=== PATIENT | male | born 1935 | race Caucasian/White ===

== ENCOUNTER 2017-08-30 15:16 | Inpatient (IN) | payer OTHER ==
[~2017-08-30] VITALS: Ht 190.5 cm; Wt 72.2 kg
[~2017-08-30 15:16] MED LIST: ADVAIR 250/501 DISK IH; AMLOD-VALSA-HC1 EACH PO; ANACIN 400-321 EACH PO; OSTEO BI-FLEX1 EAC1 PO; SYNTHROID100 MCG PO
[2017-08-30 15:57] LABS: BASOPHIL (%) 0.1 % (0-1); EOSINOPHIL (%) 0.1 % (0-5); HEMATOCRIT 35.2 % (38.0-50.0); HEMOGLOBIN 12.7 G/DL (12.5-16.6); LYMPHOCYTE (%) 3.9 % (15-42); LYMPHOCYTE COUNT 0.7 K/uL (1.0-2.8); MCH 32.1 PG (29.0-34.0); MCHC 36.1 G/DL (30.0-36.0); MONOCYTE (%) 4.7 % (3-12); MONOCYTE COUNT 0.9 K/uL (0-0.8); NEUTROPHIL (%) 90.2 % (45-76); NEUTROPHIL COUNT 16.4 K/uL (1.8-6.4); PLATELET COUNT 548 K/uL (156-360); RBC DIS.WIDTH-CV 11.6 % (11.8-14.6); RBC DIS.WIDTH-SD 37.6 % (39-53); RED BLOOD COUNT 3.96 M/uL (4.00-5.50); WHITE BLOOD COUNT 18.1 K/uL (4.1-10.2)
[2017-08-30 15:59] LABS: MCV 88.9 FL (86-99)
[2017-08-30 16:03] LABS: INTER. NORMALIZED RATIO 1.3
[2017-08-30 16:05] LABS: APPEARANCE SL.HAZY ((CLEAR)); BILIRUBIN NEGATIVE; BLOOD MODERATE; COLOR YELLOW ((YELLOW)); GLUCOSE (STRIP) NEGATIVE; KETONES 5; LEUKOCYTES NEGATIVE; NITRITE NEGATIVE; PROTEIN (STRIP) NEGATIVE; SPECIFIC GRAVITY 1.017 (1.000-1.030); UROBILINOGEN 0.2 MG/DL (0.2-1.0)
[2017-08-30 16:05] LABS: PTT 27.3 SEC (25-37)
[2017-08-30 16:06] LABS: ALBUMIN 3.2 g/dL (3.2-4.8); CHLORIDE 77 mEq/L (99-109)
[2017-08-30 16:08] LABS: GLUCOSE 110 mg/dL (70-99); TOTAL PROTEIN 5.3 g/dL (6.4-8.3)
[2017-08-30 16:10] LABS: TOTAL BILIRUBIN 1.1 mg/dL (0.0-1.0)
[2017-08-30 16:11] LABS: BACTERIA NONE SEEN /HPF; EPITHELIAL CELLS RARE /HPF; MUCUS TRACE /LPF; RED BLOOD CELLS 30-40 /HPF (0-5); UCUL ADDED? YES
[2017-08-30 16:12] LABS: ALKALINE PHOSPHATASE 94 IU/L (3-129); CREATININE 0.6 mg/dL (0.6-1.3); GFR ESTIMATE (CALCULATED) > 59 mL/min/ (58.99-99999)
[2017-08-30 16:13] LABS: UREA NITROGEN (BUN) 10 mg/dL (9-23)
[2017-08-30 16:14] LABS: AST (GOT) 37 IU/L (2-34)
[2017-08-30 16:15] LABS: ALT (GPT) 52 IU/L (3-49); LIPASE 6 U/L (1.0-51.0)
[2017-08-30 16:27] LABS: SODIUM 111 mEq/L (136-147)
[2017-08-30 17:56] LABS: THYROTROPIN (TSH) 1.7 MIU/L (0.4-5.5)
[2017-08-30] MEDS ORDERED: AMOX TR-K CLV1 EAC4 PO (17:58)
[2017-08-30] MEDS ORDERED: BREO ELLIPTA I1 EACH IH (17:59)
[2017-08-30] MEDS ORDERED: ESOMEPRAZOLE MA40 MG PO (17:59)
[2017-08-30] MEDS ORDERED: PHENERGAN-CODE120 ML PO (17:59)
[2017-08-30] MEDS ORDERED: AMLODIPINE BESYL5 MG PO (18:00)
[2017-08-30 18:05] LABS: CHLORIDE 80 mEq/L (99-109); POTASSIUM 3.5 mEq/L (3.7-5.4)
[2017-08-30 18:07] LABS: GLUCOSE 102 mg/dL (70-99)
[2017-08-30 18:11] LABS: CREATININE 0.5 mg/dL (0.6-1.3); GFR ESTIMATE (CALCULATED) > 59 mL/min/ (58.99-99999)
[2017-08-30 18:12] LABS: UREA NITROGEN (BUN) 9 mg/dL (9-23)
[2017-08-30 18:18] LABS: SODIUM 112 mEq/L (136-147)
[2017-08-30 20:37] LABS: CHLORIDE 80 mEq/L (99-109); POTASSIUM 3.6 mEq/L (3.7-5.4)
[2017-08-30 20:39] LABS: GLUCOSE 102 mg/dL (70-99)
[2017-08-30 20:43] LABS: CREATININE 0.5 mg/dL (0.6-1.3); GFR ESTIMATE (CALCULATED) > 59 mL/min/ (58.99-99999)
[2017-08-30 20:44] LABS: UREA NITROGEN (BUN) 8 mg/dL (9-23)
[2017-08-30 20:51] LABS: SODIUM 112 mEq/L (136-147)
[2017-08-30 21:15] VITALS: BP 146/67
[2017-08-30 22:13] LABS: CREATININE 0.4 MG/DL (0.6-1.3); GFR ESTIMATE (CALCULATED) > 59 mL/min/ (58.99-99999); GLUCOSE 105 mg/dL (70-99); POTASSIUM 3.5 MEQ/L (3.7-5.4); UREA NITROGEN (BUN) 9 mg/dL (9-23)
[2017-08-30 22:14] LABS: CHLORIDE 79 MEQ/L (99-109); SODIUM 114 MEQ/L (136-147)
[2017-08-31] VITALS (7 sets, daily range): BP systolic 111–132; BP diastolic 67–87
[2017-08-31 00:56] LABS: CHLORIDE 83 mEq/L (99-109); POTASSIUM 4.2 mEq/L (3.7-5.4)
[2017-08-31 00:58] LABS: GLUCOSE 97 mg/dL (70-99)
[2017-08-31 01:02] LABS: CREATININE 0.5 mg/dL (0.6-1.3); GFR ESTIMATE (CALCULATED) > 59 mL/min/ (58.99-99999)
[2017-08-31 01:03] LABS: SODIUM 113 mEq/L (136-147); UREA NITROGEN (BUN) 8 mg/dL (9-23)
[2017-08-31 03:03] LABS: CHLORIDE 82 mEq/L (99-109); POTASSIUM 3.9 mEq/L (3.7-5.4)
[2017-08-31 03:04] LABS: GLUCOSE 96 mg/dL (70-99)
[2017-08-31 03:08] LABS: CREATININE 0.5 mg/dL (0.6-1.3); GFR ESTIMATE (CALCULATED) > 59 mL/min/ (58.99-99999)
[2017-08-31 03:09] LABS: UREA NITROGEN (BUN) 8 mg/dL (9-23)
[2017-08-31 03:12] LABS: SODIUM 113 mEq/L (136-147)
[2017-08-31 05:04] LABS: CHLORIDE 84 mEq/L (99-109); POTASSIUM 3.9 mEq/L (3.7-5.4)
[2017-08-31 05:06] LABS: GLUCOSE 91 mg/dL (70-99)
[2017-08-31 05:10] LABS: CREATININE 0.5 mg/dL (0.6-1.3); GFR ESTIMATE (CALCULATED) > 59 mL/min/ (58.99-99999); SODIUM 115 mEq/L (136-147); UREA NITROGEN (BUN) 7 mg/dL (9-23)
[2017-08-31 06:52] LABS: HEMATOCRIT 31.7 % (38.0-50.0); HEMOGLOBIN 11.7 G/DL (12.5-16.6); MCH 32.6 PG (29.0-34.0); MCHC 36.9 G/DL (30.0-36.0); MCV 88.3 FL (86-99); PLATELET COUNT 474 K/uL (156-360); RBC DIS.WIDTH-CV 11.6 % (11.8-14.6); RBC DIS.WIDTH-SD 37.4 % (39-53); RED BLOOD COUNT 3.59 M/uL (4.00-5.50); WHITE BLOOD COUNT 15.5 K/uL (4.1-10.2)
[2017-08-31 07:18] LABS: ALBUMIN 2.4 G/DL (3.2-4.8); ALT (GPT) 40 IU/L (3-49); AST (GOT) 34 IU/L (2-34); CHLORIDE 84 MEQ/L (99-109); CREATININE 0.4 MG/DL (0.6-1.3); GFR ESTIMATE (CALCULATED) > 59 mL/min/ (58.99-99999); GLUCOSE 91 mg/dL (70-99); POTASSIUM 3.8 MEQ/L (3.7-5.4); UREA NITROGEN (BUN) 7 mg/dL (9-23)
[2017-08-31 07:28] LABS: SODIUM 118 MEQ/L (136-147); TOTAL BILIRUBIN 0.9 MG/DL (0.0-1.0)
[2017-08-31 07:29] LABS: ALKALINE PHOSPHATASE 74 IU/L (3-129); TOTAL PROTEIN 4.4 G/DL (6.4-8.3)
[2017-08-31 08:25] LABS: CHLORIDE 84 MEQ/L (99-109); CREATININE 0.5 MG/DL (0.6-1.3); GFR ESTIMATE (CALCULATED) > 59 mL/min/ (58.99-99999); GLUCOSE 86 mg/dL (70-99); POTASSIUM 3.8 MEQ/L (3.7-5.4); SODIUM 120 MEQ/L (136-147); UREA NITROGEN (BUN) 8 mg/dL (9-23)
[2017-08-31 11:50] LABS: CHLORIDE 84 MEQ/L (99-109); CREATININE 0.5 MG/DL (0.6-1.3); GFR ESTIMATE (CALCULATED) > 59 mL/min/ (58.99-99999); GLUCOSE 94 mg/dL (70-99); POTASSIUM 3.9 MEQ/L (3.7-5.4); SODIUM 121 MEQ/L (136-147); UREA NITROGEN (BUN) 8 mg/dL (9-23)
[2017-08-31 16:12] LABS: CHLORIDE 83 MEQ/L (99-109); CREATININE 0.5 MG/DL (0.6-1.3); GFR ESTIMATE (CALCULATED) > 59 mL/min/ (58.99-99999); POTASSIUM 3.2 MEQ/L (3.7-5.4); SODIUM 120 MEQ/L (136-147); UREA NITROGEN (BUN) 7 mg/dL (9-23)
[2017-08-31 16:13] LABS: GLUCOSE 118 mg/dL (70-99)
[2017-08-31 20:29] LABS: CHLORIDE 84 MEQ/L (99-109); CREATININE 0.4 MG/DL (0.6-1.3); GFR ESTIMATE (CALCULATED) > 59 mL/min/ (58.99-99999); GLUCOSE 99 mg/dL (70-99); SODIUM 119 MEQ/L (136-147); UREA NITROGEN (BUN) 7 mg/dL (9-23)
[2017-09-01] VITALS: BP 128/68
[2017-09-01 01:03] LABS: CHLORIDE 89 mEq/L (99-109); POTASSIUM 3.3 mEq/L (3.7-5.4); SODIUM 122 mEq/L (136-147)
[2017-09-01 01:05] LABS: GLUCOSE 96 mg/dL (70-99)
[2017-09-01 01:09] LABS: CREATININE 0.5 mg/dL (0.6-1.3); GFR ESTIMATE (CALCULATED) > 59 mL/min/ (58.99-99999)
[2017-09-01 01:10] LABS: UREA NITROGEN (BUN) 6 mg/dL (9-23)
[2017-09-01 04:19] LABS: CHLORIDE 88 mEq/L (99-109); POTASSIUM 3.1 mEq/L (3.7-5.4); SODIUM 126 mEq/L (136-147)
[2017-09-01 04:21] LABS: GLUCOSE 91 mg/dL (70-99)
[2017-09-01 04:25] LABS: CREATININE 0.6 mg/dL (0.6-1.3); GFR ESTIMATE (CALCULATED) > 59 mL/min/ (58.99-99999); UREA NITROGEN (BUN) 5 mg/dL (9-23)
[2017-09-01 04:35] LABS: BASOPHIL (%) 0.1 % (0-1); EOSINOPHIL (%) 0.3 % (0-5); HEMOGLOBIN 12.6 G/DL (12.5-16.6); IMMATURE GRANULOCYTE (%) 1.3 % (0.0-0.7); LYMPHOCYTE (%) 9.4 % (15-42); LYMPHOCYTE COUNT 1.1 K/uL (1.0-2.8); MCH 32.1 PG (29.0-34.0); MCV 89.1 FL (86-99); MONOCYTE (%) 8.2 % (3-12); NEUTROPHIL (%) 80.7 % (45-76); NEUTROPHIL COUNT 9.4 K/uL (1.8-6.4); PLATELET COUNT 533 K/uL (156-360); RBC DIS.WIDTH-CV 11.7 % (11.8-14.6); RBC DIS.WIDTH-SD 37.5 % (39-53); RED BLOOD COUNT 3.93 M/uL (4.00-5.50); WHITE BLOOD COUNT 11.6 K/uL (4.1-10.2)
[2017-09-01 04:57] VITALS: BP 126/73
[2017-09-01 08:00] VITALS: BP 121/67
[2017-09-01 10:45] LABS: CHLORIDE 85 MEQ/L (99-109); CREATININE 0.5 MG/DL (0.6-1.3); GFR ESTIMATE (CALCULATED) > 59 mL/min/ (58.99-99999); SODIUM 124 MEQ/L (136-147); UREA NITROGEN (BUN) 5 mg/dL (9-23)
[2017-09-01 10:46] LABS: GLUCOSE 162 mg/dL (70-99)
[2017-09-01 11:28] LABS: TYPE OF FLUID PLEURAL
[2017-09-01 11:47] LABS: TOTAL PROTEIN 4.6 G/DL (6.4-8.3)
[2017-09-01 11:48] LABS: LACTATE DEHYDROGENASE 202 IU/L (20-246)
[2017-09-01 11:50] LABS: APPEARANCE CLOUDY-BLOODY; BODY FLUID RBC'S 18000 /MM^3 (0-100); BODY FLUID WBC'S 2001 /MM^3 (0-500)
[2017-09-01 12:12] VITALS: BP 123/74
[2017-09-01 12:22] LABS: BODY FLUID EOSINOPHILS 0 % (0-25); MONONUCLEAR WBC'S 49 %; POLYNUCLEAR WBC'S 51 % (0-25)
[2017-09-01 12:27] LABS: BODY FLUID GLUCOSE 135 MG/DL; BODY FLUID LDH 191 IU/L; BODY FLUID PROTEIN < 3.0 G/DL
[2017-09-01 16:25] VITALS: BP 146/78
[2017-09-01 16:27] LABS: CHLORIDE 87 MEQ/L (99-109); CREATININE 0.5 MG/DL (0.6-1.3); GFR ESTIMATE (CALCULATED) > 59 mL/min/ (58.99-99999); POTASSIUM 3.2 MEQ/L (3.7-5.4); SODIUM 123 MEQ/L (136-147); UREA NITROGEN (BUN) 5 mg/dL (9-23)
[2017-09-01 16:32] LABS: GLUCOSE 95 mg/dL (70-99)
[2017-09-01 19:26] VITALS: BP 140/85
[2017-09-01 21:45] LABS: CHLORIDE 89 MEQ/L (99-109); CREATININE 0.7 MG/DL (0.6-1.3); GFR ESTIMATE (CALCULATED) > 59 mL/min/ (58.99-99999); GLUCOSE 97 mg/dL (70-99); POTASSIUM 3.7 MEQ/L (3.7-5.4); SODIUM 125 MEQ/L (136-147); UREA NITROGEN (BUN) 6 mg/dL (9-23)
[2017-09-02] VITALS (7 sets, daily range): BP systolic 118–151; BP diastolic 74–86
[2017-09-02 06:30] LABS: BASOPHIL (%) 0.1 % (0-1); EOSINOPHIL (%) 0.2 % (0-5); HEMATOCRIT 37.3 % (38.0-50.0); IMMATURE GRANULOCYTE (%) 0.8 % (0.0-0.7); LYMPHOCYTE (%) 5.4 % (15-42); LYMPHOCYTE COUNT 0.8 K/uL (1.0-2.8); MCH 31.5 PG (29.0-34.0); MCHC 34.9 G/DL (30.0-36.0); MCV 90.3 FL (86-99); NEUTROPHIL (%) 86.5 % (45-76); NEUTROPHIL COUNT 12.3 K/uL (1.8-6.4); PLATELET COUNT 495 K/uL (156-360); RBC DIS.WIDTH-CV 12.2 % (11.8-14.6); RBC DIS.WIDTH-SD 39.9 % (39-53); RED BLOOD COUNT 4.13 M/uL (4.00-5.50); WHITE BLOOD COUNT 14.2 K/uL (4.1-10.2)
[2017-09-02 07:01] LABS: CHLORIDE 93 MEQ/L (99-109); GFR ESTIMATE (CALCULATED) > 59 mL/min/ (58.99-99999); GLUCOSE 80 mg/dL (70-99); SODIUM 128 MEQ/L (136-147); UREA NITROGEN (BUN) 8 mg/dL (9-23)
[2017-09-02 07:14] LABS: POTASSIUM 4.5 MEQ/L (3.7-5.4)
[2017-09-03 04:16] VITALS: BP 143/80
[2017-09-03 09:24] VITALS: BP 157/87
[2017-09-03 10:12] LABS: CHLORIDE 96 MEQ/L (99-109); POTASSIUM 4.2 MEQ/L (3.7-5.4); UREA NITROGEN (BUN) 14 mg/dL (9-23)
[2017-09-03 10:25] LABS: CREATININE 1.9 MG/DL (0.6-1.3); GFR ESTIMATE (CALCULATED) 36 mL/min/ (58.99-99999); GLUCOSE 108 mg/dL (70-99); SODIUM 135 MEQ/L (136-147); VANCOMYCIN, TROUGH 39.8 MCG/ML (10-20)
[2017-09-03 12:16] VITALS: BP 138/82
[2017-09-03 16:32] VITALS: BP 134/84
[2017-09-03 20:44] VITALS: BP 128/77
[2017-09-04 00:07] VITALS: BP 130/77
[2017-09-04 04:47] VITALS: BP 139/72
[2017-09-04 06:17] LABS: BASOPHIL (%) 0.2 % (0-1); EOSINOPHIL (%) 1.7 % (0-5); EOSINOPHIL COUNT 0.2 K/uL (0-0.3); HEMATOCRIT 35.1 % (38.0-50.0); HEMOGLOBIN 12.1 G/DL (12.5-16.6); IMMATURE GRANULOCYTE (%) 1.1 % (0.0-0.7); LYMPHOCYTE (%) 5.8 % (15-42); LYMPHOCYTE COUNT 0.8 K/uL (1.0-2.8); MCH 32.4 PG (29.0-34.0); MCHC 34.5 G/DL (30.0-36.0); MCV 93.9 FL (86-99); MONOCYTE COUNT 0.9 K/uL (0-0.8); NEUTROPHIL (%) 84.2 % (45-76); NEUTROPHIL COUNT 11.2 K/uL (1.8-6.4); PLATELET COUNT 361 K/uL (156-360); RBC DIS.WIDTH-CV 13.3 % (11.8-14.6); RBC DIS.WIDTH-SD 45.6 % (39-53); RED BLOOD COUNT 3.74 M/uL (4.00-5.50); WHITE BLOOD COUNT 13.3 K/uL (4.1-10.2)
[2017-09-04 06:40] LABS: CHLORIDE 97 MEQ/L (99-109); CREATININE 2.3 MG/DL (0.6-1.3); GFR ESTIMATE (CALCULATED) 29 mL/min/ (58.99-99999); GLUCOSE 111 mg/dL (70-99); SODIUM 135 MEQ/L (136-147); UREA NITROGEN (BUN) 17 mg/dL (9-23)
[2017-09-04 08:25] VITALS: BP 140/72
[2017-09-04 15:19] VITALS: BP 140/74
[2017-09-04 23:25] VITALS: BP 121/72
[2017-09-05 07:12] LABS: BASOPHIL (%) 0.2 % (0-1); EOSINOPHIL (%) 1.8 % (0-5); EOSINOPHIL COUNT 0.2 K/uL (0-0.3); HEMATOCRIT 32.4 % (38.0-50.0); HEMOGLOBIN 11.2 G/DL (12.5-16.6); IMMATURE GRANULOCYTE (%) 1.1 % (0.0-0.7); LYMPHOCYTE (%) 6.7 % (15-42); LYMPHOCYTE COUNT 0.8 K/uL (1.0-2.8); MCH 32.7 PG (29.0-34.0); MCHC 34.6 G/DL (30.0-36.0); MCV 94.5 FL (86-99); MONOCYTE (%) 8.3 % (3-12); NEUTROPHIL (%) 81.9 % (45-76); NEUTROPHIL COUNT 9.8 K/uL (1.8-6.4); PLATELET COUNT 290 K/uL (156-360); RBC DIS.WIDTH-CV 13.5 % (11.8-14.6); RBC DIS.WIDTH-SD 46.4 % (39-53); RED BLOOD COUNT 3.43 M/uL (4.00-5.50); WHITE BLOOD COUNT 11.9 K/uL (4.1-10.2)
[2017-09-05 07:29] LABS: CHLORIDE 99 MEQ/L (99-109); CREATININE 2.4 MG/DL (0.6-1.3); GFR ESTIMATE (CALCULATED) 28 mL/min/ (58.99-99999); GLUCOSE 94 mg/dL (70-99); MAGNESIUM 1.8 mg/dl (1.3-2.7); PHOSPHORUS 3.3 mg/dL (2.5-4.9); POTASSIUM 3.7 MEQ/L (3.7-5.4); SODIUM 133 MEQ/L (136-147); UREA NITROGEN (BUN) 20 mg/dL (9-23)
[2017-09-05 08:18] VITALS: BP 129/81
[2017-09-05 23:37] VITALS: BP 130/72
[2017-09-06 08:22] LABS: ALBUMIN 2.3 G/DL (3.2-4.8); CHLORIDE 102 MEQ/L (99-109); POTASSIUM 3.6 MEQ/L (3.7-5.4); SODIUM 136 MEQ/L (136-147)
[2017-09-06 08:28] LABS: CREATININE 2.4 MG/DL (0.6-1.3); GFR ESTIMATE (CALCULATED) 28 mL/min/ (58.99-99999); GLUCOSE 83 mg/dL (70-99); PHOSPHORUS 3.3 mg/dL (2.5-4.9); UREA NITROGEN (BUN) 19 mg/dL (9-23)
[2017-09-06 09:15] VITALS: BP 145/79
[2017-09-06 15:58] VITALS: BP 141/82
[2017-09-06 23:11] VITALS: BP 136/78
[2017-09-07 07:23] LABS: CHLORIDE 105 MEQ/L (99-109); CREATININE 2.4 MG/DL (0.6-1.3); GFR ESTIMATE (CALCULATED) 28 mL/min/ (58.99-99999); GLUCOSE 87 mg/dL (70-99); POTASSIUM 3.6 MEQ/L (3.7-5.4); SODIUM 139 MEQ/L (136-147); UREA NITROGEN (BUN) 20 mg/dL (9-23)
[2017-09-07 09:04] VITALS: BP 145/82
[2017-09-07 16:07] VITALS: BP 151/81
[2017-09-08] VITALS: BP 135/74
[2017-09-08 06:36] LABS: BASOPHIL (%) 0.3 % (0-1); EOSINOPHIL (%) 3.3 % (0-5); EOSINOPHIL COUNT 0.3 K/uL (0-0.3); HEMATOCRIT 35.7 % (38.0-50.0); IMMATURE GRANULOCYTE (%) 0.8 % (0.0-0.7); MCH 32.2 PG (29.0-34.0); MCHC 33.6 G/DL (30.0-36.0); MCV 95.7 FL (86-99); MONOCYTE (%) 7.3 % (3-12); MONOCYTE COUNT 0.7 K/uL (0-0.8); NEUTROPHIL (%) 78.3 % (45-76); NEUTROPHIL COUNT 7.6 K/uL (1.8-6.4); PLATELET COUNT 244 K/uL (156-360); RBC DIS.WIDTH-CV 13.6 % (11.8-14.6); RBC DIS.WIDTH-SD 47.8 % (39-53); RED BLOOD COUNT 3.73 M/uL (4.00-5.50); WHITE BLOOD COUNT 9.7 K/uL (4.1-10.2)
[2017-09-08 06:58] LABS: CHLORIDE 104 MEQ/L (99-109); CREATININE 2.1 MG/DL (0.6-1.3); GFR ESTIMATE (CALCULATED) 32 mL/min/ (58.99-99999); GLUCOSE 88 mg/dL (70-99); POTASSIUM 3.4 MEQ/L (3.7-5.4); SODIUM 141 MEQ/L (136-147); UREA NITROGEN (BUN) 17 mg/dL (9-23)
[2017-09-08 07:35] VITALS: BP 132/70
[2017-09-08 15:30] VITALS: BP 130/80
[2017-09-09 00:09] VITALS: BP 143/82
[2017-09-09 07:07] LABS: BASOPHIL (%) 0.3 % (0-1); EOSINOPHIL (%) 3.9 % (0-5); EOSINOPHIL COUNT 0.3 K/uL (0-0.3); HEMATOCRIT 35.6 % (38.0-50.0); IMMATURE GRANULOCYTE (%) 0.7 % (0.0-0.7); LYMPHOCYTE (%) 10.3 % (15-42); LYMPHOCYTE COUNT 0.9 K/uL (1.0-2.8); MCH 32.4 PG (29.0-34.0); MCHC 33.7 G/DL (30.0-36.0); MCV 96.2 FL (86-99); MONOCYTE (%) 7.1 % (3-12); MONOCYTE COUNT 0.6 K/uL (0-0.8); NEUTROPHIL (%) 77.7 % (45-76); NEUTROPHIL COUNT 6.9 K/uL (1.8-6.4); PLATELET COUNT 228 K/uL (156-360); RBC DIS.WIDTH-CV 13.7 % (11.8-14.6); RBC DIS.WIDTH-SD 48.1 % (39-53); WHITE BLOOD COUNT 8.8 K/uL (4.1-10.2)
[2017-09-09 07:20] VITALS: BP 126/84
[2017-09-09 07:32] LABS: CHLORIDE 108 MEQ/L (99-109); CREATININE 1.9 MG/DL (0.6-1.3); GFR ESTIMATE (CALCULATED) 36 mL/min/ (58.99-99999); GLUCOSE 87 mg/dL (70-99); MAGNESIUM 1.7 mg/dl (1.3-2.7); PHOSPHORUS 2.7 mg/dL (2.5-4.9); POTASSIUM 3.8 MEQ/L (3.7-5.4); SODIUM 143 MEQ/L (136-147); UREA NITROGEN (BUN) 14 mg/dL (9-23)
[2017-09-09 15:35] VITALS: BP 153/84
[2017-09-10 00:16] VITALS: BP 154/77
[2017-09-10 06:45] LABS: BASOPHIL (%) 0.5 % (0-1); EOSINOPHIL (%) 3.8 % (0-5); EOSINOPHIL COUNT 0.3 K/uL (0-0.3); HEMATOCRIT 34.4 % (38.0-50.0); HEMOGLOBIN 11.6 G/DL (12.5-16.6); IMMATURE GRANULOCYTE (%) 0.9 % (0.0-0.7); LYMPHOCYTE (%) 10.6 % (15-42); LYMPHOCYTE COUNT 0.9 K/uL (1.0-2.8); MCH 32.1 PG (29.0-34.0); MCHC 33.7 G/DL (30.0-36.0); MCV 95.3 FL (86-99); MONOCYTE (%) 6.9 % (3-12); MONOCYTE COUNT 0.6 K/uL (0-0.8); NEUTROPHIL (%) 77.3 % (45-76); NEUTROPHIL COUNT 6.5 K/uL (1.8-6.4); PLATELET COUNT 244 K/uL (156-360); RBC DIS.WIDTH-CV 13.6 % (11.8-14.6); RED BLOOD COUNT 3.61 M/uL (4.00-5.50); WHITE BLOOD COUNT 8.5 K/uL (4.1-10.2)
[2017-09-10 07:08] LABS: CHLORIDE 110 MEQ/L (99-109); CREATININE 1.6 MG/DL (0.6-1.3); GFR ESTIMATE (CALCULATED) 44 mL/min/ (58.99-99999); GLUCOSE 90 mg/dL (70-99); POTASSIUM 3.3 MEQ/L (3.7-5.4); SODIUM 145 MEQ/L (136-147); UREA NITROGEN (BUN) 13 mg/dL (9-23)
[2017-09-10 07:33] VITALS: BP 155/87
[2017-09-10 15:16] VITALS: BP 154/81
[2017-09-10 23:57] VITALS: BP 143/87
[2017-09-11 07:05] VITALS: BP 144/84
[2017-09-11 07:11] LABS: CHLORIDE 105 MEQ/L (99-109); CREATININE 1.5 MG/DL (0.6-1.3); GFR ESTIMATE (CALCULATED) 48 mL/min/ (58.99-99999); GLUCOSE 83 mg/dL (70-99); POTASSIUM 3.5 MEQ/L (3.7-5.4); SODIUM 142 MEQ/L (136-147); UREA NITROGEN (BUN) 11 mg/dL (9-23)
[2017-09-11] MEDS ORDERED: MILK OF MAGN PO (13:06)
[2017-09-11] MEDS ORDERED: TAMSULOSIN HCL0.4 MG PO (13:07)
== END 2017-09-11 16:10 | disposition home health service (06) | DRG 640 ==
LOC: EME 15:16 → EDOF 18:32 → 2EASTP 18:32 → 4EAST 18:32 → ENRESERV 18:35 → 4EAST 21:03 → ENRESERV 09-03 12:48 → 2EASTP 09-03 15:45 → ENPENDDIS 09-11 → 2EASTP 09-11 16:10
PROVIDERS: Emergency Medicine; Family Medicine; Internal Medicine Nephrology; Radiology Diagnostic Radiology
PROC: 0W993ZZ Drainage of Right Pleural Cavity, Percutaneous Approach (ICD-10-PCS; principal; 2017-09-01)
DX: E87.1 Hypo-osmolality and hyponatremia (principal); S06.5X0A Traumatic subdural hemorrhage without loss of consciousness, initial encounter; W19.XXXA Unspecified fall, initial encounter; E86.0 Dehydration; J18.9 Pneumonia, unspecified organism; Y95 Nosocomial condition; J90 Pleural effusion, not elsewhere classified; N17.9 Acute kidney failure, unspecified; T36.8X5A Adverse effect of other systemic antibiotics, initial encounter; J98.11 Atelectasis; R33.9 Retention of urine, unspecified; E87.6 Hypokalemia; C85.90 Non-Hodgkin lymphoma, unspecified, unspecified site; E03.9 Hypothyroidism, unspecified; E78.5 Hyperlipidemia, unspecified; I10 Essential (primary) hypertension; J45.909 Unspecified asthma, uncomplicated; L11.1 Transient acantholytic dermatosis [Grover]; R35.1 Nocturia; Z66 Do not resuscitate; Z87.891 Personal history of nicotine dependence; Z88.1 Allergy status to other antibiotic agents; Z91.041 Radiographic dye allergy status
CPT/HCPCS: 70450; 71045; 71046; 71048; 76770; 76942; 80047; 80048; 80048 91; 80053; 80069; 80202; 81003; 82436; 82945; 83605; 83615; 83615 91; 83690; 83735; 83930; 83935; 84100; 84133; 84155; 84157; 84300; 84443; 84443 GA; 85025; 85027; 85610; 85730; 87040; 87070; 87075; 87086 GA; 87116; 87205; 87206; 88108; 88305; 89051; 93005; 94760; 94799; 97530 GP; 99202; 99281; 99285; J0456; J0692; J0696; J2543; J2597; J3370; J3480; J7030; J7050; J7060; J7120